=== PATIENT | female | born 1990 | race Caucasian/White ===

== ENCOUNTER 2020-07-22 09:04 | Outpatient (CLI) | payer OTHER, SELFPAY ==
--- NOTE | ~2020-07-22 | MMUS_ITS ---
EXAMINATION: MM diagnostic nyla RT w maricruz, US breast RT complete HISTORY: Right breast lump TECHNIQUE: ML, MLO and craniocaudal 3-D tomosynthesis images of the right breast were performed and s ynthetic 2-D images were generated. CAD analysis was submitted and interpreted. High resolution compl ete right breast ultrasound was performed. COMPARISON: None BREAST PARENCHYMAL COMPOSITION: The breasts are extremely dense, which lowers the sensitivity of mamm ography. FINDINGS: MAMMOGRAPHIC FINDINGS: An approximately 9 mm circumscribed mass is noted in the upper outer right breast at mid depth. (MLO Tomosynthesis image ). This corresponds to the area of clinical complaint of right breast lump. No focal mass or any architectural distortion, malignant calcification, skin thickening or retraction is noted otherwise. ULTRASOUND: At 10:00 4 cm from the nipple there is an irregular heterogeneous hypoechoic lesion measuring approxi mately 9.4 cm maximal dimension. There is some internal vascularity. No posterior features are noted. Ultrasound-guided biopsy should be considered. IMPRESSION: 1. 9.4 mm heterogeneous irregular mass at 10:00 4 cm from nipple 2. Ultrasound-guided biopsy of right breast 10:00 lesion is recommended. BI-RADS category 4, suspicious findings. Dr. Hoover telephoned the report and ultrasound guided biopsy recommendation on 07/22/2020 at 1049 hours to Destin Loza. Reviewed, dictated and finalized at location C. IMPRESSION: 1. 9.4 mm heterogeneous irregular mass at 10:00 4 cm from nipple 2. Ultrasound-guided biopsy of right breast 10:00 lesion is recommended. BI-RADS category 4, suspicious findings. Dr. Hoover telephoned the report and ultrasound guided biopsy recommendation on at 1049 hours to Destin Loza. IMPRESSION: 1. 9.4 mm heterogeneous irregular mass at 10:00 4 cm from nipple 2. Ultrasound-guided biopsy of right breast 10:00 lesion is recommended. BI-RADS category 4, suspicious findings. Dr. Hoover telephoned the report and ultrasound guided biopsy recommendation on at 1049 hours to Denia, [employer].
== END 2020-07-22 09:05 | disposition home or self-care (01) ==
PROVIDERS: Visit Provider Advanced Practice Midwife
DX: N63.10 Unspecified lump in the right breast, unspecified quadrant (principal); N64.59 Other signs and symptoms in breast; R92.8 Other abnormal and inconclusive findings on diagnostic imaging of breast
CPT/HCPCS: 76641; 77061; 77065; G0279